=== PATIENT | male | born 1965 | race Asian ===

== ENCOUNTER 2018-05-24 14:41 | Emergency (ER) | payer OTHER ==
[2018-05-24] MEDS: 0.9 % SODIUM CHLORIDE 1,000 ML IV ONE (15:15)
[2018-05-24] MEDS: LORATADINE 10 MG TABLET PO ONE (15:15)
[2018-05-24] MEDS: diphenhydrAMINE HCL 50 MG/ML VIAL IVP ONE (15:16)
[2018-05-24] MEDS: KETOROLAC TROMETHAMINE 30 MG/1ML VIAL IVP ONE (15:18)
[2018-05-24] MEDS: ceFAZolin SODIUM 1 GM VIAL IV ONE (15:20)
[2018-05-24] MEDS: 0.9 % SODIUM CHLORIDE 100 ML IV ONE (15:23)
[2018-05-24] MEDS: ceFAZolin SODIUM 1 GM VIAL ONE (15:23)
[2018-05-24 15:26] LABS: BASOPHILS % 0.2 (0.0-1.5); EOSINOPHILS % 4.8 % (0.0-6.8); MEAN CORPUSCULAR HEMOGLOBIN 28.9 pg (28.0-34.0); MONOCYTES % 2.6 % (0.0-11.0); NEUTROPHILS # 12.6 # k/uL (1.4-7.7)
[2018-05-24 15:30] LABS: eGFR (Non-African) > 60
--- NOTE | 2018-05-24 15:58 | ED Physician Documentation ---
General Adult - HISTORIAN Historian: patient - HPI Stated Complaint: swelling right arm Chief Complaint: General Adult Further Comments: yes (49 year old male patient presents with complaint of wasp sting on right wrist and redness up entire arm. Has not taken any benadryl. C/O pain and tightness) - ROS CONST: no problems EYES/ENT: none CVS/RESP: none GI/: none MS/SKIN/LYMPH: none NEURO/PSYCH: denies: headache - PAST HX Past History: none Other History: none Surgeries/Procedures: none Allergies/Adverse Reactions: Allergies Allergy/AdvReac Type Severity Reaction Status Date / Time No Known Drug Allergies Allergy Verified 05/24/18 16:01 Home Medications: Ambulatory Orders Medication Instructions Recorded Cephalexin [Keflex] 500 mg PO QID #40 capsule 05/24/18 - SOCIAL HX Smoking History: non-smoker - FAMILY HX Family History: No - VITAL SIGNS Vital Signs: Vital Signs Temp Pulse Resp BP Pulse Ox 98.3 F 100 H 16 126/83 97 05/24/18 15:07 05/24/18 15:07 05/24/18 15:07 05/24/18 15:07 05/24/18 15:07 - REVIEWED ASSESSMENTS Nursing Assessment Reviewed: Yes Vitals Reviewed: Yes Progress - Progress Progress: Patient medicated with toradol, cefazolin, and loratadine while in ER. Patient states he feels better at discharge. Reviewed instructions. Patient verbalized understanding. ED Results Lab/Radiology - Lab Results Lab Results: Lab Results 05/24/18 05/24/18 15:19 15:19 WBC 14.80 K/ul H K/ul (4.00-12.00) RBC 4.58 M/ul M/ul (3.90-5.20) Hgb 13.2 g/dL g/dL (12.0-18.0) Hct 39.8 % % (37.0-53.0) MCV 87.0 fl fl (80.0-100.0) MCH 28.9 pg pg (28.0-34.0) MCHC 33.2 g/dL g/dL (30.0-36.0) RDW 13.4 % % (11.3-14.3) Plt Count 237 K/mm3 K/mm3 (130-400) Neut % (Auto) 85.0 % H % (39.0-79.0) Lymph % (Auto) 6.6 % L % (16.0-50.0) [place] % (Auto) 2.6 % % (0.0-11.0) Eos % (Auto) 4.8 % % (0.0-6.8) Baso % (Auto) 0.2 (0.0-1.5) Neut # (Auto) 12.6 # k/uL H # k/uL (1.4-7.7) Lymph # (Auto) 1.0 # k/uL # k/uL (0.6-4.0) [place] # (Auto) 0.4 # k/uL # k/uL (0.0-0.9) Eos # (Auto) 0.7 # k/uL H # k/uL (0.0-0.6) Baso # (Auto) 0.0 # k/uL # k/uL (0.0-0.5) Reactive Lymphs % 0.7 % % (0.0-5.0) Reactive Lymphs # 0.1 # k/uL # k/uL (0.0-0.8) Sodium 134 mmol/L L mmol/L (136-145) Potassium 4.3 mmol/L mmol/L (3.5-5.1) Chloride 100 mmol/L mmol/L (98-107) Carbon Dioxide 25 mmol/L mmol/L (22-30) BUN 13 mg/dL mg/dL (9-20) Creatinine 0.90 mg/dL mg/dL (0.66-1.25) Estimated Creat Clear 87 Est GFR ( Amer) > 60 (60 - ) Est GFR (Non-Af Amer) > 60 (60 - ) Glucose 247 mg/dL H mg/dL (74-106) Calcium 8.9 mg/dL mg/dL (8.4-10.2) Total Bilirubin 0.7 mg/dL mg/dL (0.2-1.3) AST 18 U/L U/L (15-46) ALT 33 U/L U/L (13-69) Alkaline Phosphatase 119 U/L U/L (38-126) Total Protein 8.9 g/dL H g/dL (6.3-8.2) Albumin 4.6 g/dL g/dL (3.5-5.0) - Orders Orders: ED Orders Category Date Time Status Place IV Lock 1T Care 05/24/18 15:08 Active CBC/PLATELET/DIFF Stat Lab 05/24/18 15:19 Completed CMP Stat Lab 05/24/18 15:19 Completed 0.9 % Sodium Chloride [Normal Saline] 1,000 ml Med 05/24/18 15:08 Discontinued IV NOW 0.9 % Sodium Chloride [Sodium Chloride] 100 ml Med 05/24/18 15:12 Discontinued IV .STK-MED Ketorolac Tromethamine [Toradol] Med 05/24/18 15:08 Discontinued 30 mg IVP NOW ONE Loratadine [Claritin] Med 05/24/18 15:08 Discontinued 10 mg PO NOW ONE ceFAZolin SODIUM [Ancef] Med 05/24/18 15:11 Discontinued 1 gm .ROUTE .STK-MED ONE ceFAZolin SODIUM [Ancef] Med 05/24/18 15:09 Discontinued 1 gm IV NOW ONE diphenhydrAMINE HCL [Benadryl] Med 05/24/18 15:08 Discontinued 25 mg IVP NOW ONE General Adult Physical Exam - PHYSICAL EXAM GENERAL APPEARANCE: [id number] N EENT: eye inspection normal, ENT inspection normal, pharynx normal, no signs of dehydration, [place], no nystagmus, TM's nml RESPIRATORY: no resp distress, chest non-tender, breath sounds normal CVS: reg rate & rhythm, heart sounds normal, equal pulses, no murmur, no gallop, PMI nml, no JVD, no friction rub, 24 ABDOMEN: soft, no organomegaly, normal bowel sounds, no abdominal bruit, no distension SKIN: warm/dry, normal color, other (erythema and edema noted in right arm; erythema to right axilla. Radial pulse 3+) NEURO: oriented X3, CN's nml as tested, motor nml, sensation nml, mood/affect nml Discharge Clincal Impression: Allergic reaction to insect bite Wasp sting Qualifiers: Encounter type: initial encounter Injury intent: accidental or unintentional Qualified Code(s): T63.461A - Toxic effect of venom of wasps, accidental (unintentional), initial encounter Prescriptions: Cephalexin [Keflex] 500 mg PO QID #40 capsule Referrals: Anni Barbosa MD [Primary Care Provider] - 2 Days Additional Instructions: Rest ice elevation service support representative your antibiotic and start it today Benadryl 25-50mg every 6 hours x 2 days, then as needed Claritin daily until symptoms resolve. Follow up with your primary care doctor on Friday for re-evaluation. Condition: Stable Disposition: HOME, SELF-CARE Decision to Admit: NO Decision Time: 15:58
[2018-05-24 16:24] VITALS: BP 118/63
== END 2018-05-24 16:22 | disposition home or self-care (01) ==
LOC: ED 14:41
DX: R60.0 Localized edema (principal); T78.40XA Allergy, unspecified, initial encounter; T63.461A Toxic effect of venom of wasps, accidental (unintentional), initial encounter; X58.XXXA Exposure to other specified factors, initial encounter; Y92.9 Unspecified place or not applicable; Y93.9 Activity, unspecified; Y99.9 Unspecified external cause status
CPT/HCPCS: 80053; 85025; J0690; J1200; J1885; J7030; 96365; 96368; 96375; 99284; S1016